=== PATIENT | male | born 1945 | race African-American/Black ===

== ENCOUNTER 2019-02-02 11:38 | Outpatient (CLI) | payer MEDICARE, OTHER ==
[2019-02-02 11:30] VITALS: BP 154/99
[2019-02-02] MEDS ORDERED: UNOBMED (14:56)
--- NOTE | 2019-02-03 22:30 | Consultation ---
DATE OF CONSULTATION: 02/03/2019 CHIEF COMPLAINT: Hepatitis C. HISTORY OF PRESENT ILLNESS: Actually most of history per chart. We did not why the patient was referred to our office until we got the records from the primary care physician so at the time of visit of the patient we did not know that he has hepatitis C. He is extremely poor historian. We thought that he is here for colonoscopy screening given the age of 73 and unfortunately after he left we were able to get the records from the PMD the find out he actually was referred to us for hepatitis C. PAST MEDICAL HISTORY: 1. Hypertension. 2. . 3. CVA. 4. Hepatitis C. 5. HSV positive. 6. positive in the past. Difficulty hearing. 7. Difficulty with vision. PAST SURGICAL HISTORY: None. MEDICATIONS: Per chart, none. FAMILY HISTORY: Questionable, sister has a liver cancer. SOCIAL HISTORY: The patient denies any tobacco, alcohol, or drug abuse. ALLERGIES: No known allergies. PHYSICAL EXAMINATION: VITAL SIGNS: Temperature 99, pulse 74, respirations 20, and blood pressure 150/99. HEENT: Normocephalic, atraumatic. Sclerae anicteric. NECK: Supple. No evidence of lymphadenopathy. CARDIOVASCULAR: Regular rate and rhythm. Plus S1 and S2. No obvious murmur. LUNGS: Clear to auscultation bilaterally. ABDOMEN: Positive bowel sounds. Soft, nontender. No rebound. No guarding. No peritoneal sign. EXTREMITIES: No cyanosis. No clubbing. No edema. ASSESSMENT AND PLAN: 1. Hepatitis C with normal liver function tests. The patient will need to have hepatitis C genotype and quantitative to be drawn and also we need to do an abdominal ultrasound. We would defer these to be done by the primary care physician given we had a hard time getting authorization for the patient to come back to see us and order all those so our recommendation is for the primary care physician to do hep C genotype and hep C quantitative, abdominal ultrasound, and refer the patient back to office for treatment. 2. Screening colonoscopy. The patient needs a screening colonoscopy but the patient refusing to take the prep at this time, so we will re-evaluate him next time and try to communicate with him and try to convince him to get it done. Myke Ana Lomax DR: Kelly JOB#: [id number] CC:
[2019-02-04] MEDS ORDERED: VITAMIN D1000 UNI1 ORAL (11:16)
[2019-02-04] MEDS ORDERED: METOPROLOL TART25 MG ORAL (11:16)
[2019-02-04] MEDS ORDERED: ASPIRIN EC81 MG ORAL (11:16)
[2019-02-04] MEDS ORDERED: LOSARTAN POTASS50 MG ORAL (11:16)
[2019-02-04] MEDS ORDERED: AMLODIPINE BESY10 MG ORAL (11:16)
== END 2019-02-02 13:44 | disposition home or self-care (01) ==
LOC: PAN 11:38
DX: B19.20 Unspecified viral hepatitis C without hepatic coma (principal); I10 Essential (primary) hypertension; Z86.73 Personal history of transient ischemic attack (TIA), and cerebral infarction without residual deficits; Z80.8 Family history of malignant neoplasm of other organs or systems
CPT/HCPCS: 99203